=== PATIENT | female | born 1975 | race American Indian/Alaskan Native ===

== ENCOUNTER 2018-03-22 08:48 | Emergency (ER) | payer BC, OTHER ==
[2018-03-22 08:57] VITALS: BP 116/75
[2018-03-22] MEDS ORDERED: TORADOL IV ONE (09:26)
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
[2018-03-22 10:14] LABS: BUN/Creatinine Ratio 16; Blood Urea Nitrogen 11 mg/dL (7-17); Hemolysis Index 7
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
== END 2018-03-22 12:48 | disposition home or self-care (01) ==
LOC: ED 08:48
DX: S10.93XA Contusion of unspecified part of neck, initial encounter (principal); J02.9 Acute pharyngitis, unspecified; R10.13 Epigastric pain; Z98.51 Tubal ligation status; Z88.0 Allergy status to penicillin; Z88.1 Allergy status to other antibiotic agents; Y08.89XA Assault by other specified means, initial encounter; Y99.8 Other external cause status; Y92.89 Other specified places as the place of occurrence of the external cause
CPT/HCPCS: 36415; 70491; 80048; 96374; 99284; J1885; Q9967